=== PATIENT | female | born 1990 | race Caucasian/White ===

== ENCOUNTER → 2020-10-17 14:48 | Outpatient (CLI) | payer OTHER, SELFPAY ==
[2020-10-19 03:37] LABS: Chlamydia trachomatis NAA Negative (Negative); Neisseria gonorrhoeae NAA Negative (Negative)
== END ==
PROVIDERS: PCP Family Medicine; Visit Provider Obstetrics & Gynecology
DX: Z34.81 Encounter for supervision of other normal pregnancy, first trimester (principal); Z11.3 Encounter for screening for infections with a predominantly sexual mode of transmission; Z3A.08 8 weeks gestation of pregnancy
CPT/HCPCS: 87491; 87591

== ENCOUNTER → 2021-01-05 10:42 | Outpatient (CLI) | payer OTHER, SELFPAY ==
--- NOTE | 2021-01-05 10:43 | DI.US.S_ITS ---
PROCEDURE: US OB >= 14 WEEKS FETUS INDICATIONS: ANATOMY OUTSIDE/PRIOR DATING DATA: Last menstrual period (LMP): 08/18/20. LMP-based estimated date of delivery (KAYLEE): 05/25/21 . First dating scan (date and location): 10/17/[address] Anderson . Estimated date of delivery (KAYLEE) from first dating scan: 05/24/21, by Dr. Anderson . TECHNIQUE: Real-time scanning was performed of the fetus, with image documentation and biometric measurements. Endovaginal scanning: Not needed COMPARISON: [facility], , OB >= 14 WEEKS FETUS, 12/15/2020, 14:38. FINDINGS: General: A single living intrauterine gestation is present. Presentation: Breech. Placenta: Placental position is anterior , without previa. Amniotic fluid index: 11.4 cm, normal range is 5-24 cm. heart rate: 158 beats per minute. Maternal cervical canal: 3.1 cm long. Normal lower limit is 2.5 cm. biometrics: Biparietal diameter: 4.7 cm, 20 weeks 2 days Head circumference: 17.3 cm, 19 weeks 6 days Abdominal circumference: 15.9 cm, 21 weeks 0 days Femur length: 3.4 cm, 20 weeks 3 days Estimated gestational age from initial scan: 20 weeks 1 day Composite gestational age from present scan: 20 weeks 3 days Estimated weight and percentile: 370 g, 76th percentile Measurement variability for biometric dating: +/- 7 days from 14 weeks to 15 weeks 6 days gestation, +/- 10 days from 16 weeks to 21 weeks 6 days gestation, +/- 2 weeks from 22 weeks to 27 weeks 6 days gestation, +/- 3 weeks for 28 weeks gestation or later. weight reference: 4500 g or EFW >90/95% is considered macrosomia or large for gestational age. EFW <10% is small for gestational age. EFW 5% or less is considered intra-uterine growth restriction. Anatomic survey: Neuro: Ventricles are non-dilated at less than 10 mm. Cisterna magna is normal at 3-11 mm. Cerebellum is normal in size and morphology. Nuchal skin fold: Normal at less than 6 mm between 14-21 weeks gestational age. Face: Nose and lips, facial profile are normal. Spine: No evidence for spina bifida. Heart: 4-chambered heart is present, with normal ventricular outflow tracts. Diaphragm: Diaphragm is intact. Stomach: Left-sided stomach is present. Kidneys: No hydronephrosis. Normal is less than 5 mm in 2nd trimester, less than 7 mm in 3rd trimester. Cord: 3-vessel cord has orthotopic insertion. Bladder: Normal in size. Extremities: All 4 extremities identified. IMPRESSION: Single living intrauterine gestation with normal survey of anatomy and appropriate interval growth. Dictated by: Aaron Newman M.D. on 01/05/2021 at 12:44 Approved by: Aaron Newman M.D. on 01/05/2021 at 12:46
== END ==
PROVIDERS: PCP Family Medicine; Referring Provider Obstetrics & Gynecology; Visit Provider Obstetrics & Gynecology
DX: Z34.82 Encounter for supervision of other normal pregnancy, second trimester (principal); Z3A.20 20 weeks gestation of pregnancy
CPT/HCPCS: 76811

== ENCOUNTER → 2021-02-02 10:19 | Outpatient (CLI) | payer OTHER, SELFPAY ==
[2021-02-02 12:04] LABS: Appearance Urine UA CLEAR; Bilirubin Urine UA NEGATIVE (NEGATIVE); Color Urine UA YELLOW; Glucose Urine UA NEGATIVE (Negative); Ketones Urine UA NEGATIVE (NEGATIVE); Leukocyte Esterase Urine UA NEGATIVE (NEGATIVE); Nitrite Urine UA NEGATIVE (Negative); Occult Blood Urine UA 2+ (Negative); Protein Urine UA NEGATIVE (Negative); Specific Gravity Urine UA 1.025 (1.000-1.035); Urobilinogen Urine UA 0.2 E.U./dL (0.2)
[2021-02-02 12:32] LABS: Add Manual Diff / Slide Review NO; Basophils Absolute Auto 0 /uL (0-100); Basophils Percent Auto 0.3 % (0-2); Eosinophils Absolute Auto 0 /uL (0-450); Eosinophils Percent Auto 0.4 % (2-4); Hematocrit 36.8 % (36-46); Hemoglobin 12.6 g/dL (12.0-16.0); Lymphocytes Absolute Auto 1400 /uL (1100-4500); Lymphocytes Percent Auto 16.9 % (25-40); Mean Corpuscular HGB Conc 34.3 % (30-36); Mean Corpuscular Hemoglobin 31.8 PG (26-34); Mean Corpuscular Volume 92.6 fL (80-100); Monocytes Absolute Auto 500 /uL (0-900); Monocytes Percent Auto 6.1 % (3-14); Neutrophils Absolute Auto 6300 /uL (1500-7000); Neutrophils Percent Auto 76.3 % (50-75); Platelet Count 135 X10^3/uL (150-400); Red Blood Cell Count 3.98 X10^6/uL (4.0-5.2); Red Cell Distribution Width 13.4 % (11.6-14.8); White Blood Cell Count 8.3 X10^3/uL (4.5-11.0)
[2021-02-02 12:44] LABS: Bacteria Urine Occasional (0-1); RBC Urine 0-1/HPF (0-5/HPF); Squamous Epithelial Cell Urine 0-1 /HPF (0-5/HPF); WBC Urine 0-1/HPF (0-5/HPF)
[2021-02-02 12:53] LABS: GTT (PREG) 1 Hour PP 50gm Dose 128 mg/dL (76-139)
[2021-02-02 17:58] LABS: Hepatitis B Surface Antigen NEGATIVE s/c (NEGATIVE); Rubella Antibody IgG 17.6 IU/mL (>15)
[2021-02-02 18:15] LABS: HIV 1 & 2 Ab/Ag 4th Gen Combo NEGATIVE (NEGATIVE); Hep C Virus Ab w/Reflex Quant NEGATIVE s/c (NEGATIVE)
[2021-02-03 06:08] LABS: RPR Screen Non Reactive (Non Reactive)
[2021-02-03 11:50] LABS: Varicella IgG Antibody 977 index (Immune >165)
== END ==
PROVIDERS: Obstetrics & Gynecology; PCP Family Medicine; Referring Provider Obstetrics & Gynecology; Visit Provider Obstetrics & Gynecology
DX: Z34.82 Encounter for supervision of other normal pregnancy, second trimester (principal); Z3A.24 24 weeks gestation of pregnancy
CPT/HCPCS: 36415; 80055; 81003; 81015; 82950; 86787; 86803; 86850; 86900; 86901; 87086; 87389

== ENCOUNTER 2021-04-13 13:52 | Outpatient (CLI) | payer OTHER, SELFPAY | END 2021-04-13 15:18 | disposition home or self-care (01) | LOC: LABOR 14:39 → OB 04-14 07:44 | PROVIDERS: PCP Family Medicine; Referring Provider Obstetrics & Gynecology; Visit Provider Obstetrics & Gynecology | DX: O47.03 False labor before 37 completed weeks of gestation, third trimester (principal); Z3A.34 34 weeks gestation of pregnancy | CPT/HCPCS: 59025; G0378; G0379 ==

== ENCOUNTER → 2021-04-20 14:34 | Outpatient (CLI) | payer OTHER, SELFPAY ==
[2021-04-21 11:50] LABS: Strep Grp B PCR NEG for Grp B Strep
== END ==
PROVIDERS: PCP Family Medicine; Visit Provider Obstetrics & Gynecology
DX: Z34.83 Encounter for supervision of other normal pregnancy, third trimester (principal); Z3A.35 35 weeks gestation of pregnancy
CPT/HCPCS: 87653

== ENCOUNTER 2021-04-27 14:01 | Outpatient (CLI) | payer OTHER, SELFPAY ==
--- NOTE | 2021-04-27 14:58 | PM.OBTRLD ---
Visit Information Visit Information Date of evaluation: 04/27/21 Primary OB Provider: Miriam Mcintosh On-call OB Provider: Sybil Simeon Reason for Evaluation: Yes non-stress test Vital Signs Vital Signs: Temperature 36.1? blood pressure 113/61 heart rate 108 PFSH Surgical History H/O wisdom tooth extraction History of ankle surgery History of primary section (~05/25/19) Family History Mother No problems noted. Father Asthma Grandmother Breast cancer Cancer Grandfather Glaucoma Grandmother Thyroid condition Grandfather No problems noted. Sister No problems noted. 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 NST reactive, one contraction noted on the monitor. She is scheduled for an OMARI in the radiology department after NST. Follow with Dr. Mcintosh as scheduled. OB Disposition: home
== END 2021-04-27 15:03 | disposition home or self-care (01) ==
LOC: LABOR 14:39 → OB 04-28 06:54
PROVIDERS: PCP Family Medicine; Referring Provider Obstetrics & Gynecology; Visit Provider Obstetrics & Gynecology
DX: O47.03 False labor before 37 completed weeks of gestation, third trimester (principal); Z3A.36 36 weeks gestation of pregnancy; Z36.89 Encounter for other specified antenatal screening; Z87.59 Personal history of other complications of pregnancy, childbirth and the puerperium
CPT/HCPCS: 59025; 76815; G0378; G0379

== ENCOUNTER → 2021-04-27 15:00 | Outpatient (CLI) | payer OTHER, SELFPAY ==
--- NOTE | 2021-04-27 15:00 | DI.US.S_ITS ---
PROCEDURE: US OB LIMITED INDICATIONS: AMNIOTIC FLUID INDEX OUTSIDE/PRIOR DATING DATA: Last menstrual period (LMP): 08/18/2020. LMP-based estimated date of delivery (KAYLEE): 05/25/2021 . First dating scan (date and location): 10/17/2020 . Estimated date of delivery (KAYLEE) from first dating scan: 05/24/2021 . TECHNIQUE: Real-time scanning was performed of the fetus, with image documentation. Endovaginal scanning: Not performed COMPARISON: None. FINDINGS: A single living intrauterine gestation is present. Presentation: Vertex. Placenta: Placental position is anterior , without previa. Amniotic fluid index: 10.7 cm, normal range is 5-24 cm. heart rate: 141 beats per minute. Maternal cervical canal: Not well seen at late stage of Estimated gestational age from initial scan: 36 weeks 1 day. IMPRESSION: Living 3rd trimester intrauterine . Normal OMARI. Dictated by: Claus Jefferson M.D. on 04/27/2021 at 17:11 Approved by: Claus Jefferson M.D. on 04/27/2021 at 17:12
== END ==
PROVIDERS: PCP Family Medicine; Referring Provider Obstetrics & Gynecology; Visit Provider Obstetrics & Gynecology
DX: Z36.89 Encounter for other specified antenatal screening (principal); Z87.59 Personal history of other complications of pregnancy, childbirth and the puerperium; Z3A.36 36 weeks gestation of pregnancy
CPT/HCPCS: 76815

== ENCOUNTER 2021-05-14 12:28 | Outpatient (CLI) | payer OTHER, SELFPAY ==
--- NOTE | 2021-05-14 18:31 | PM.OBTRLD ---
Visit Information Visit Information Date of evaluation: 05/14/21 Primary OB Provider: Miriam Mcintosh On-call OB Provider: Milady Graves Reason for Evaluation: Yes rupture of membranes Vital Signs Vital Signs: Blood pressure 131/86, temperature 98.3?, pulse of 89 PFSH Surgical History H/O wisdom tooth extraction History of ankle surgery History of primary section (~05/25/19) Family History Mother No problems noted. Father Asthma Grandmother Breast cancer Cancer Grandfather Glaucoma Grandmother Thyroid condition Grandfather No problems noted. Sister No problems noted. 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 Good movement. No headaches, scotomata, epigastric pain. No regular contractions. Evaluation Evaluation Baseline heart rate: 140 Variability: Moderate (11-25) monitor accelerations: Present Monitor Decelerations: Absent Category of Tracing: Reactive Status: Category l Diagnosis, Plan/Disposition Final Diagnosis (1) False labor: Status: Acute (2) 38 weeks gestation of : Status: Acute Plan/Disposition Plan: Patient with no rupture membranes reassured. Follow up at her regularly scheduled OB appointment unless symptoms change. OB Disposition: home
== END 2021-05-14 13:55 | disposition home or self-care (01) ==
LOC: LABOR 13:09 → OB 05-15 07:34
PROVIDERS: PCP Family Medicine; Referring Provider Obstetrics & Gynecology; Visit Provider Obstetrics & Gynecology
DX: Z03.71 Encounter for suspected problem with amniotic cavity and membrane ruled out (principal); O47.1 False labor at or after 37 completed weeks of gestation; Z3A.38 38 weeks gestation of pregnancy
CPT/HCPCS: 59025; 84112; G0378; G0379

== ENCOUNTER → 2021-05-18 09:02 | Outpatient (CLI) | payer OTHER, SELFPAY ==
[2021-05-18 10:49] LABS: COVID19 -Nasal RAPID Negative (Negative)
== END ==
PROVIDERS: PCP Family Medicine; Visit Provider Obstetrics & Gynecology
DX: Z01.812 Encounter for preprocedural laboratory examination (principal); Z20.822 Contact with and (suspected) exposure to COVID-19
CPT/HCPCS: 87635

== ENCOUNTER 2021-05-19 05:53 | Inpatient (IN) | payer OTHER, SELFPAY ==
[2021-05-19 06:34] VITALS: BP 120/74
[2021-05-19 06:57] LABS: Add Manual Diff / Slide Review NO; Basophils Absolute Auto 0 /uL (0-100); Basophils Percent Auto 0.5 % (0-2); Eosinophils Absolute Auto 100 /uL (0-450); Eosinophils Percent Auto 1.5 % (2-4); Hematocrit 36.5 % (36-46); Hemoglobin 12.4 g/dL (12.0-16.0); Lymphocytes Absolute Auto 1500 /uL (1100-4500); Lymphocytes Percent Auto 19.6 % (25-40); Mean Corpuscular HGB Conc 34.1 % (30-36); Mean Corpuscular Hemoglobin 31.6 PG (26-34); Mean Corpuscular Volume 92.8 fL (80-100); Monocytes Absolute Auto 600 /uL (0-900); Monocytes Percent Auto 7.7 % (3-14); Neutrophils Absolute Auto 5400 /uL (1500-7000); Neutrophils Percent Auto 70.7 % (50-75); Platelet Count 105 X10^3/uL (150-400); Red Blood Cell Count 3.93 X10^6/uL (4.0-5.2); Red Cell Distribution Width 13.3 % (11.6-14.8); White Blood Cell Count 7.6 X10^3/uL (4.5-11.0)
[2021-05-19] MEDS: CITRIC ACID/SODIUM CITRATE 15 ML SOLUTION 30 ML PO (07:21)
--- NOTE | 2021-05-19 07:22 | PM.HP.1 ---
History of Present Illness History of Present Illness Date Patient Seen: 05/19/21 Time Patient Seen: 07:22 Chief complaint: REPEAT W/ALLY SALPINGECTOMY Narrative: Patient is a 31-year-old 2 para 1 at 39 weeks gestation with a previous section. She presents for a repeat section. Patient changed her mind this morning and she does not desire bilateral salpingectomy. Patient History Surgical History H/O wisdom tooth extraction History of ankle surgery History of primary section (~05/25/19) Family & Social History Family History Mother No problems noted. Father Asthma Grandmother Breast cancer Cancer Grandfather Glaucoma Grandmother Thyroid condition Grandfather No problems noted. Sister No problems noted. Social History: household members spouse,children lives independently Yes Tobacco & Substance use: Smoking Status Never smoker alcohol intake former Meds Home Medications and Allergies Home Medications Medication Instructions Recorded Confirmed Type prenat.vits,princess,aor-[id number] 1 tab PO DAILY 10/06/20 05/19/21 History Allergies Allergy/AdvReac Type Severity Reaction Status Date / Time Penicillins Allergy Intermediate As a child Verified 05/19/21 06:33 - reacted negatively Exam Vital Signs (past 8 hours): - 05/19/21 06:34 Blood Pressure 120/74 Narrative Exam Narrative: Generally: Patient is sitting up in bed, no acute distress Lungs: Clear to auscultation bilaterally Cardiovascular: Regular rate and rhythm Fundus: 39 cm, estimated weight 7 and half to 8 lb Abdomen: Well-healed Pfannenstiel scar Extremities: Trace edema, 1+ DTRs Objective Labs Result Diagrams: 05/19/21 06:30 Labs: Laboratory Results - last 24 hr 05/19/21 06:30 WBC 7.6 RBC 3.93 L Hgb 12.4 Hct 36.5 MCV 92.8 MCH 31.6 MCHC 34.1 RDW 13.3 Plt Count 105 L Neut % (Auto) 70.7 Lymph % (Auto) 19.6 L [place] % (Auto) 7.7 Eos % (Auto) 1.5 L Baso % (Auto) 0.5 Neut # (Auto) 5400 Lymph # (Auto) 1500 [place] # (Auto) 600 Eos # (Auto) 100 Baso # (Auto) 0 Assessment & Plan Assessment & Plan narrative: Assessment: 31-year-old 2 para 1 at 39 weeks gestation with a previous section Plan: Repeat low-transverse section The risks, benefits, and alternatives to the procedure were explained to the patient. The risks including bleeding, infection, injury to the bowel, bladder, or ureters. She understands these risks and agrees to proceed. A full par Q was held and consent form was signed. COVID-19 COVID-19 status: Negative Result date/Date tested (Pos, Neg/Pending): 05/18/21 Time Spent With Patient Time with patient: 15-24 minutes
--- NOTE | 2021-05-19 07:26 | PM.PREOP ---
Pre-operative Note COVID-19 COVID-19 status: Negative Result date/Date tested (Pos, Neg/Pending): 05/18/21 Interval Note History & Physical reviewed/Exam performed by Physician: Yes Changes to H&P: No H&P completed within 30 days and has changed as indicated here:: 05/19/21
[2021-05-19] MEDS: CEFAZOLIN 1 GM VIAL 2 GM IV (08:08)
--- NOTE | 2021-05-19 08:22 | SUR.OPER ---
Supine on Padded OR bed, head on pillow, safety belt at thigh, arms secured on padded arm boards at <90 degrees abduction. Bump under right buttock. Legs uncrossed with pillow under knees, gel pad to heels, tape over blanket to lower legs. gel pad placed between urinary catheter tubing and patient's posterior thigh.
[2021-05-19] MEDS: TRIAMCINOLONE 40 MG/ML VIAL IM (08:37)
--- NOTE | 2021-05-19 08:44 | SUR.OPER ---
Viable female delivered at 0826. Placenta delivered. Cord blood tubes X2 and placenta given to L&D RN.
--- NOTE | 2021-05-19 09:09 | PM.OBCS.1 ---
Operative Date/Time/Diagnoses Date of procedure: 05/19/21 Time of procedure: 09:10 Pre-op diagnosis: Thirty-nine weeks gestation Keloid scar Previous section Post-op diagnosis: same Procedure & Clinicians Procedure: Repeat low-transverse section Revision of scar Same procedure as scheduled: Yes Indications: Previous section Thirty-nine weeks gestation Keloid scar Surgeon: Miriam Thorne Yes if Unassisted: No Naval Aircrewman Operator: Ronny Rahman Reason for Naval Aircrewman Operator: The sales operations assistant was essential and retracting and cutting suture. He assisted in delivery of the baby. He assisted with closure with retraction and cutting of suture. He closed of the contralateral fascia. Anesthesia Type: Spinal Operative Notes Findings: Live female infant in the ERMELINDA presentation. Normal uterus, tubes, and ovaries Keloid scar of the Pfannenstiel incision Fascial scarring Closure Type: primary Specimen(s): cord blood and placenta Intraoperative meds administered: Duramorph and Pitocin Applied: Catheter (To continuous straining) Estimated Blood Loss (mL): 500 Blood products transfused: none Procedure in detail: The patient was taken to the operating room where she was placed in the seated position. Spinal anesthesia was administered. The patient was then placed in the dorsal supine position with a leftward tilt. She was prepped and draped in the usual sterile fashion. A timeout was performed. After spinal analgesia was found to be adequate, an elliptical incision was made around the previous Pfannenstiel skin incision, and the incision with underlying subcutaneous tissue was excised. The fascia was nicked in the midline, and the incision extended bilaterally with the Myles scissors. The superior aspect of the fascial incision was grasped with a Underhill clamps, elevated, and the underlying rectus muscles dissected off sharply and bluntly. Attention was then turned to the inferior aspect of this incision which in a similar fashion was grasped with a Terra clamps, elevated, and the underlying rectus muscles dissected off sharply and bluntly. The rectus muscles were in the midline. The peritoneum was identified, grasped between 2 hemostats, and entered sharply with the Metzenbaum scissors. This incision was extended superiorly and inferiorly with good visualization of the bladder. The bladder blade was inserted. The vesicouterine peritoneum was identified, grasped with the pickup, and entered sharply with the Metzenbaum scissors. This incision was extended bilaterally, and the bladder flap was created digitally. The bladder blade was reinserted. The lower uterine segment was incised in a transverse fashion with the scalpel. Upon entering the amniotic sac there was moderate amount of clear amniotic fluid. The 's head was delivered with vacuum assistance. The nose and mouth were suctioned with bulb suction. The remainder of the body delivered without difficulty. The cord was double clamped and cut after 40 seconds. The was handed off to waiting RN and RT. The placenta was delivered manually. The uterus was cleared of all clots and debris. The cervix was opened with a ring forceps which was then handed off the field. The uterine incision was repaired with #1 chromic in a running interlocking fashion, and a second layer the same suture was used for an imbricating layer. Hemostasis was achieved. The tubes and ovaries were examined and were found to be normal. The gutters were cleared of all clots and debris. The parietal peritoneum was closed using 2-0 Vicryl in a running fashion. The fascia was reapproximated using 0 Vicryl in a running fashion. The subcutaneous layer was copiously irrigated with warm normal saline. 6 simple interrupted sutures of 3-0 Vicryl were placed to reapproximate the subcutaneous layer. The skin was closed with 4-0 Monocryl in a subcuticular fashion. 10 cc of a solution 1 mg of Kenalog in 10 cc of saline were injected along the superior and inferior borders of the incision with 1 milligram/centimeter of tissue. Steri-Strips were placed. An Aquacell dressing was placed. The uterus was expressed of a small amount of old blood. Uterus at U -2. Sponge, lap, and instrument counts were correct x-2. The patient tolerated the procedure well, and was taken to PACU in stable condition. 1400 cc of crystalloid. Complications: none [place] Baby 1: Infant Gender: Female Presentation: vertex Position: Left Occiput Anterior Placental Delivery Description: Manual Removal Cord Vessel Description: 3 Vessels and Clamped/Cut score (1 min): 8 score (5 min): 9 weight: 9 lb 1 oz Post-operative Condition: stable Disposition: PACU Aftercare: routine postop
[2021-05-19 09:10] VITALS: BP 109/61; PULSE 93; RESP 12; TEMP 35.9; O2SAT 99
[2021-05-19 09:15] VITALS: BP 106/60; PULSE 97; RESP 13; O2SAT 100
[2021-05-19 09:20] VITALS: BP 100/58; PULSE 91; RESP 13; O2SAT 99
[2021-05-19 09:25] VITALS: BP 114/69; PULSE 105; RESP 15; O2SAT 98
[2021-05-19] MEDS: OXYCODONE IR 5 MG TABLET PO ×2 (09:26→13:00)
[2021-05-19] MEDS: ONDANSETRON 4 MG/2 ML INJ IV ×2 (09:27→12:57)
[2021-05-19 09:30] VITALS: BP 110/62; PULSE 87; RESP 16; TEMP 36.1; O2SAT 98
[2021-05-19] MEDS: LANOLIN OINT 7 GM 1 APPLIC TOP (12:57)
[2021-05-19] MEDS: LACTATED RINGERS 1,000 ML 100 ML IV (13:01)
[2021-05-19] MEDS: KETOROLAC 30 MG/ML VIAL IV ×2 (14:49→21:08)
[2021-05-19] MEDS: ACETAMINOPHEN 325 MG TABLET 650 MG PO (18:16)
[2021-05-20] MEDS: KETOROLAC 30 MG/ML VIAL IV ×2 (02:58→09:13)
[2021-05-20] MEDS: ACETAMINOPHEN 325 MG TABLET 650 MG PO ×3 (02:58→20:55)
[2021-05-20 06:46] LABS: Hematocrit 32.6 % (36-46); Hemoglobin 11.1 g/dL (12.0-16.0)
[2021-05-20] MEDS: PRENATAL VIT,CALC/IRON/FOLIC 1 TABLET 1 TAB PO (09:12)
[2021-05-20] MEDS: DOCUSATE 100 MG CAPSULE 200 MG PO (09:12)
[2021-05-20] MEDS: IBUPROFEN 600 MG TABLET PO ×2 (15:01→20:54)
[2021-05-20 21:30] VITALS: BP 104/62; PULSE 85; RESP 16; TEMP 36.6
== END 2021-05-20 21:40 | disposition home or self-care (01) | DRG 788 ==
PROVIDERS: Admitting Provider Obstetrics & Gynecology; PCP Family Medicine; Referring Provider Obstetrics & Gynecology; Visit Provider Obstetrics & Gynecology
PROC: 10D00Z1 Extraction of Products of Conception, Low, Open Approach (ICD-10-PCS; CPT 59514; principal; 2021-05-19 07:45)
DX: O34.211 Maternal care for low transverse scar from previous cesarean delivery (principal); Z3A.39 39 weeks gestation of pregnancy; Z37.0 Single live birth; L91.0 Hypertrophic scar
CPT/HCPCS: 36415; 59025; 59050; 59510; 59514; 85014; 85018; 85025; 86850; 86900; 86901; J0690; J1885; J2274; J2405; J2590

== ENCOUNTER → 2021-05-27 10:03 | Outpatient (CLI) | payer OTHER, SELFPAY | PROVIDERS: PCP Family Medicine; Visit Provider Specialist | DX: R30.0 Dysuria (principal) | CPT/HCPCS: 87077; 87086; 87185; 87186 ==